=== PATIENT | male | born 1950 | race African-American/Black ===

== ENCOUNTER 2020-06-30 08:57 | Inpatient (IN) | payer MEDICARE, OTHER ==
[~2020-06-30] VITALS: Ht 177.8 cm; Wt 86.2 kg
[~2020-06-30 08:57] MED LIST: AMLO-213 PO; ATOR20TA PO; BENA10TA74 PO; ESOM40CA52 PO; FURO20TA4 PO; INSU100I14 SQ; INSU300I SQ; METO-357 PO
--- NOTE | 2020-06-30 09:30 | NUR ---
attempted to insert iv 3x but pt is a hard stick. per md okay to insert midline. midline ordered. stockroom supervisor informed
--- NOTE | 2020-06-30 09:48 | NUR ---
SPOKE TO ERIN AT [facility] , PER ERIN PATIENT IS A/OX1 AND TOTAL CARE, BUT DOES NOT USE OXYGEN AT HOME. DR. BARTHOLOMEW MADE AWARE.
[2020-06-30] MEDS ORDERED: INSU100V7 SQ (10:20)
[2020-06-30] MEDS ORDERED: GABA-532 PO ×2 (10:20)
[2020-06-30] MEDS ORDERED: DEXT15LI44 PO (10:20)
[2020-06-30] MEDS ORDERED: FAMO20TA8 PO (10:20)
[2020-06-30] MEDS ORDERED: CARV25TA2 PO (10:20)
[2020-06-30] MEDS ORDERED: DOCU-141 PO (10:20)
[2020-06-30] MEDS ORDERED: LISI40TA4 PO (10:20)
[2020-06-30] MEDS ORDERED: HEPA50007 SQ (10:20)
[2020-06-30] MEDS ORDERED: LORA-259 PO (10:20)
[2020-06-30] MEDS ORDERED: GLUC1KIT IM (10:20)
[2020-06-30] MEDS ORDERED: HYDR-3972 PO (10:20)
[2020-06-30] MEDS ORDERED: HYDR-4075 PO (10:20)
[2020-06-30] MEDS ORDERED: ASPI-1169 PO (10:20)
--- NOTE | 2020-06-30 11:00 | NUR ---
health educator by bedside for the second time pt is a hard stick.
--- NOTE | 2020-06-30 11:39 | NUR ---
per railroad car cleaning supervisor midline nurse will be here at 2pm. made aware.
--- NOTE | 2020-06-30 12:20 | NUR ---
covid swab collected sent to lab
--- NOTE | 2020-06-30 13:06 | NUR ---
museum librarian and primary rn attempted to do blood draw again, was able to finally get blood, sent to lab for processing. made aware.
[2020-06-30 13:18] LABS: CALCIUM, SERUM 10.8 mg/dL (8.5-10.1); CARBON DIOXIDE 27 mmol/L (21-32); CHLORIDE 100 mmol/L (98-107); GLUCOSE 165 mg/dL (74-106); POTASSIUM 5.8 mmol/L (3.5-5.1); SODIUM SERUM 140 mmol/L (136-145); UREA NITROGEN, BLOOD 73 mg/dL (7-18)
[2020-06-30 13:20] LABS: CREATININE 14.5 mg/dL (0.6-1.3)
[2020-06-30 13:23] LABS: ALANINE AMINOTRANSFERASE 8 U/L (12-78); ALBUMIN 3.1 g/dL (3.4-5.0); ALCOHOL, BLOOD < 3 mg/dL (0-0); ALKALINE PHOSPHATASE 73 U/L (46-116); ASPARTATE AMINOTRANSFERASE 17 U/L (15-37); BILIRUBIN,DIRECT 0.1 mg/dL (0.0-0.2); BILIRUBIN,TOTAL 0.3 mg/dL (0.2-1.0); TOTAL PROTEIN, SERUM 8.7 g/dL (6.4-8.2)
[2020-06-30 13:25] LABS: ACETAMINOPHEN 0 ug/ml (10-30)
--- NOTE | 2020-06-30 13:36 | NUR ---
LUIS E HONG [phone]
[2020-06-30 13:52] LABS: SERUM AMMONIA 25 umol/L (11-32)
--- NOTE | 2020-06-30 14:30 | NUR ---
midline inserted on L upper arm. by midline urse
[2020-06-30 14:54] LABS: BASOPHILS % (AUTO) 0.5 % (0.0-2.0); EOSINOPHILS % (AUTO) 3.4 % (0.0-6.0); HEMATOCRIT 21 % (39-51); HEMOGLOBIN 7.1 g/dL (13.5-17.5); LYMPHOCYTES # (AUTO) 0.9 /CMM (0.8-4.8); LYMPHOCYTES % (AUTO) 11.3 % (20.0-44.0); MEAN CORPUSCULAR HGB CONC 33 g/dl (31.0-36.0); MEAN CORPUSCULAR VOLUME 79 fL (80-96); MONOCYTES # (AUTO) 1.1 /CMM (0.1-1.30); MONOCYTES % (AUTO) 13.7 % (2.0-12.0); NEUTROPHILS # (AUTO) 5.9 /CMM (1.8-8.9); NEUTROPHILS % (AUTO) 71.1 % (43.0-81.0); PLATELET COUNT (AUTO) 234 /CMM (150-450); RED BLOOD CELL COUNT(AUTO) 2.69 MIL/uL (4.5-6.0); WHITE BLOOD COUNT (AUTO) 8.3 K/uL (4.3-11.0)
[2020-06-30] MEDS ORDERED: ALBUTEROL FS 2.5 MG/3 ML VIAL.NEB NEB ONE (15:30)
[2020-06-30] MEDS ORDERED: CEFEPIME 1 GM in IV D5W 50 ML IV ONE (15:30)
[2020-06-30] MEDS ORDERED: INSULIN REGULAR, HUMAN 100 UNIT/ML 10 ML VIAL IV ONE (15:30)
[2020-06-30] MEDS ORDERED: SODIUM BICARBONATE SYR 50 MEQ/50 ML DISP.SYRIN IV ONE (15:30)
[2020-06-30] MEDS ORDERED: CALCIUM CHLORIDE 1,000 MG/10 ML DISP.SYRIN IV ONE (15:30)
[2020-06-30] MEDS ORDERED: DEXTROSE 50%-WATER 50 ML DISP.SYRIN IV ONE (15:30)
[2020-06-30] MEDS ORDERED: VANCOMYCIN 1 GM in IV D5W 250 ML IV ONE (15:30)
[2020-06-30] MEDS ORDERED: DEXTROSE 50%-WATER 50 ML DISP.SYRIN ONE ×2 (15:49→15:50)
[2020-06-30] MEDS ORDERED: CALCIUM CHLORIDE 1,000 MG/10 ML DISP.SYRIN ONE (15:49)
[2020-06-30] MEDS ORDERED: INSULIN REGULAR, HUMAN 100 UNIT/ML 10 ML VIAL ONE (15:49)
[2020-06-30] MEDS ORDERED: SODIUM BICARBONATE SYR 50 MEQ/50 ML DISP.SYRIN ONE (15:50)
[2020-06-30] MEDS ORDERED: hydrALAZINE HCL 10 MG TABLET PO PRN (16:00)
[2020-06-30] MEDS ORDERED: [UNRECOGNIZED DRUG - OTHER] PO PRN (16:00)
[2020-06-30] MEDS ORDERED: ZOLPIDEM TARTRATE 5 MG TABLET PO PRN (16:00)
[2020-06-30] MEDS ORDERED: HYDROCODONE/APAP 5/325MG TABLET PO PRN ×2 (16:00)
[2020-06-30] MEDS ORDERED: MAG HYDROX/AL HYDROX/SIMETH 30 ML UDC PO PRN (16:00)
[2020-06-30] MEDS ORDERED: LORAZEPAM 1 MG TABLET PO PRN (16:00)
[2020-06-30] MEDS ORDERED: MAGNESIUM HYDROXIDE 30 ML UDC PO PRN (16:00)
[2020-06-30] MEDS ORDERED: ONDANSETRON HCL/PF 4 MG/2 ML VIAL IVP PRN (16:00)
[2020-06-30] MEDS ORDERED: DEXTROSE 15 GM PO PRN (16:00)
--- NOTE | 2020-06-30 16:21 | NUR ---
rt called for breathing tx
[2020-06-30] MEDS ORDERED: ALBUTEROL FS 2.5 MG/3 ML VIAL.NEB ONE (16:27)
[2020-06-30] MEDS: GABAPENTIN 100 MG CAPSULE PO SCH ×2 (17:00→21:30)
[2020-06-30] MEDS ORDERED: GLUCAGON,HUMAN RECOMBINANT 1 MG/VIAL VIAL IM PRN (17:30)
[2020-06-30 18:57] LABS: C-REACTIVE PROTEIN 27.3 mg/dL (0.0-0.9)
--- NOTE | 2020-06-30 19:05 | NUR ---
REC'D REPORT FROM MILAD DHILLON. PT BIBRA FROM DIALYSIS FOR ALTERED MENTAL STATUS. PT WAS NOT DIALYZED TODAY. PT APPEARS CONFUSED AND NOT SPEAKING CLEARLY. SKIN IS WARM AND INTACT. ON 4L NC O2.PT BREATHING UNLABORED AND EVENLY. PT HAS DIALYSIS ACCESS ON RT UPPER EXTREMITY. PICC LINE ON LEFT UPPER EXTREMITY. PT HOOKED TO MONITOR AND POX. PT MADE COMFORTABLE WITH BLANKET AND CALL LIGHT WITHIN REACH. WILL CONTINUE TO MONITOR.
--- NOTE | 2020-06-30 19:20 | NUR ---
report given to [facility] for leni
--- NOTE | 2020-06-30 20:58 | NUR ---
RUPA KIMBROUGH [phone]
[2020-06-30] MEDS ORDERED: HEPARIN SODIUM, PORCINE 5000 UNITS/1 ML VIAL ONE (21:11)
[2020-06-30] MEDS ORDERED: CARVEDILOL 12.5 MG TABLET ONE (21:11)
[2020-06-30] MEDS ORDERED: GABAPENTIN 100 MG CAPSULE ONE (21:12)
[2020-06-30] MEDS ORDERED: ATORVASTATIN 40 MG TABLET ONE (21:12)
[2020-06-30] MEDS: HEPARIN SODIUM, PORCINE 5000 UNITS/1 ML VIAL SQ SCH (21:30)
[2020-06-30] MEDS: CARVEDILOL 12.5 MG TABLET PO SCH (21:30)
[2020-06-30] MEDS: ATORVASTATIN 40 MG TABLET PO SCH (21:30)
[2020-06-30] MEDS: INSULIN GLARGINE, 100 UNIT/ML CARTRIDGE SQ SCH (21:35)
[2020-06-30 23:26] LABS: THYROID STIMULATING HORMONE 0.492 uIU/mL (0.358-3.74)
[2020-07-01] MEDS ORDERED: SODIUM POLYSTYRENE SULFONATE 15 G/60 ML BOTTLE PO ONE (01:00)
--- NOTE | 2020-07-01 03:15 | NUR ---
lab at bedside for redraw
[2020-07-01 03:41] LABS: BASOPHILS % (AUTO) 0.4 % (0.0-2.0); EOSINOPHILS % (AUTO) 2.5 % (0.0-6.0); HEMATOCRIT 23 % (39-51); HEMOGLOBIN 7.5 g/dL (13.5-17.5); LYMPHOCYTES % (AUTO) 10.6 % (20.0-44.0); MEAN CORPUSCULAR HGB CONC 32 g/dl (31.0-36.0); MEAN CORPUSCULAR VOLUME 80 fL (80-96); MONOCYTES # (AUTO) 1.2 /CMM (0.1-1.30); MONOCYTES % (AUTO) 12.8 % (2.0-12.0); NEUTROPHILS # (AUTO) 7.1 /CMM (1.8-8.9); NEUTROPHILS % (AUTO) 73.7 % (43.0-81.0); PLATELET COUNT (AUTO) 305 /CMM (150-450); RED BLOOD CELL COUNT(AUTO) 2.91 MIL/uL (4.5-6.0); WHITE BLOOD COUNT (AUTO) 9.6 K/uL (4.3-11.0)
[2020-07-01 03:53] LABS: CALCIUM, SERUM 10.7 mg/dL (8.5-10.1); MAGNESIUM 2.6 mg/dL (1.8-2.4); PHOSPHORUS 7.6 mg/dL (2.5-4.9); POTASSIUM 6.1 mmol/L (3.5-5.1)
[2020-07-01 03:55] LABS: CREATININE 15.9 mg/dL (0.6-1.3)
[2020-07-01] MEDS ORDERED: HEPARIN SODIUM, PORCINE 5000 UNITS/1 ML VIAL ONE ×2 (05:27→13:35)
[2020-07-01] MEDS ORDERED: SODIUM POLYSTYRENE SULFONATE 15 G/60 ML BOTTLE ONE (05:28)
[2020-07-01] MEDS: HEPARIN SODIUM, PORCINE 5000 UNITS/1 ML VIAL SQ SCH ×3 (05:45→22:51)
--- NOTE | 2020-07-01 07:25 | NUR ---
GAVE REPORT TO MILAD CARVALHO FOR TAWNY
[2020-07-01] MEDS ORDERED: FAMOTIDINE (20 MG) 20 MG TABLET ONE (09:41)
[2020-07-01] MEDS: FAMOTIDINE (20 MG) 20 MG TABLET PO SCH (09:42)
[2020-07-01] MEDS ORDERED: CARVEDILOL 12.5 MG TABLET ONE (09:46)
[2020-07-01] MEDS ORDERED: DOCUSATE SODIUM LIQ 100 MG/10 ML UDC ONE (09:46)
[2020-07-01] MEDS ORDERED: AMLODIPINE BESYLATE 5 MG TABLET ONE (09:46)
[2020-07-01] MEDS ORDERED: GABAPENTIN 100 MG CAPSULE ONE ×2 (09:47→13:35)
[2020-07-01] MEDS ORDERED: ASPIRIN 81 MG TAB.CHEW ONE (09:47)
[2020-07-01] MEDS: ASPIRIN 81 MG TAB.CHEW PO SCH (10:05)
[2020-07-01] MEDS: DOCUSATE SODIUM 100 MG CAPSULE PO SCH ×2 (10:05→17:00)
[2020-07-01] MEDS: GABAPENTIN 100 MG CAPSULE PO SCH ×4 (10:06→22:00)
[2020-07-01] MEDS: LISINOPRIL (20MG) 20 MG TABLET PO SCH (10:06)
[2020-07-01] MEDS: AMLODIPINE BESYLATE 5 MG TABLET PO SCH ×2 (10:06→17:00)
[2020-07-01] MEDS: CARVEDILOL 12.5 MG TABLET PO SCH ×2 (10:06→21:00)
--- NOTE | 2020-07-01 10:49 | NUR ---
BED 201
--- NOTE | 2020-07-01 12:56 | NUR ---
REPORT GIVEN TO SIA STINSON. AWAITING TRANSFER TO FLOOR.
--- NOTE | 2020-07-01 13:30 | NUR ---
ms rn received on bed,awake,oriented x1, lethargic/confuse not in any form of distress,respirations even and unlabored,no sob noted lungs are diminish,abdomen soft,positive bowel sounds,denies pain at this time, will monitor patient's condition.
--- NOTE | 2020-07-01 15:47 | NUR ---
ms rn patient for hd later today.
[2020-07-01 16:00] VITALS: BP 151/64
--- NOTE | 2020-07-01 17:00 | NUR ---
ms rn on bed,no distress noted, medications not given, patient is so lethargic.
--- NOTE | 2020-07-01 19:00 | NUR ---
ms rn about to begin dialysis at this time hd rn at bedside.
[2020-07-01 20:00] VITALS: BP 131/76
[2020-07-01] MEDS: ATORVASTATIN 40 MG TABLET PO SCH (22:00)
[2020-07-01] MEDS: INSULIN GLARGINE, 100 UNIT/ML CARTRIDGE SQ SCH (22:00)
--- NOTE | 2020-07-01 22:43 | NUR ---
BLOOD SUGAR=49, CERTIFIED ADAPTED PHYSICAL EDUCATOR WILBER AWARE.
[2020-07-01] MEDS ORDERED: DEXTROSE 50%-WATER 50 ML DISP.SYRIN IVP ONE (23:00)
--- NOTE | 2020-07-01 23:15 | NUR ---
BLOOD SUGAR RECHECKED= 99.
--- NOTE | 2020-07-01 23:46 | NUR ---
INFORMED AUTOMATED WEAVER WILBER RE: PT UNABLE TO SWALLOW, PT IS SLIGHTLY LETHARGIC, OPENS HIS EYES FOR A FEW MINUTES THEN HE FALL ASLEEP. UNABLE TO GIVE ALL PO MEDS SCHEDULED FOR TONIGHT. RELAYED RESULT OF REPEATED BLOOD SUGAR AFTER GIVING D50 DEXTROSE.
--- NOTE | 2020-07-01 23:51 | NUR ---
HOB KEPT ELEVATED AT ALL TIMES. BED IN LOWEST AND LOCKED POSITION. SIDERAILS UP.
[2020-07-02] VITALS (8 sets, daily range): BP systolic 141–157; BP diastolic 63–75
[2020-07-02] MEDS: IV D5/ 0.9% NACL 1,000 ML IV PRN ×2 (03:44→22:52)
[2020-07-02] MEDS: Z GUARD REMEDY 2 OZ OINT TP PRN ×2 (06:14→23:45)
[2020-07-02] MEDS: HEPARIN SODIUM, PORCINE 5000 UNITS/1 ML VIAL SQ SCH ×3 (06:55→22:43)
[2020-07-02 07:28] LABS: BASOPHILS % (AUTO) 0.4 % (0.0-2.0); EOSINOPHILS % (AUTO) 0.2 % (0.0-6.0); HEMATOCRIT 23 % (39-51); HEMOGLOBIN 7.4 g/dL (13.5-17.5); LYMPHOCYTES % (AUTO) 9.1 % (20.0-44.0); MEAN CORPUSCULAR HGB CONC 32 g/dl (31.0-36.0); MEAN CORPUSCULAR VOLUME 80 fL (80-96); MONOCYTES # (AUTO) 1.1 /CMM (0.1-1.30); MONOCYTES % (AUTO) 10.1 % (2.0-12.0); NEUTROPHILS # (AUTO) 8.6 /CMM (1.8-8.9); NEUTROPHILS % (AUTO) 80.2 % (43.0-81.0); PLATELET COUNT (AUTO) 322 /CMM (150-450); WHITE BLOOD COUNT (AUTO) 10.8 K/uL (4.3-11.0)
[2020-07-02] MEDS: FAMOTIDINE (20 MG) 20 MG TABLET PO SCH (07:30)
[2020-07-02 07:35] LABS: CALCIUM, SERUM 9.9 mg/dL (8.5-10.1); POTASSIUM 4.7 mmol/L (3.5-5.1)
[2020-07-02 07:43] LABS: CREATININE 12.4 mg/dL (0.6-1.3)
[2020-07-02] MEDS: AMLODIPINE BESYLATE 5 MG TABLET PO SCH ×2 (09:00→17:18)
[2020-07-02] MEDS: CARVEDILOL 12.5 MG TABLET PO SCH ×2 (09:00→22:45)
[2020-07-02] MEDS: LISINOPRIL (20MG) 20 MG TABLET PO SCH (09:00)
[2020-07-02] MEDS: GABAPENTIN 100 MG CAPSULE PO SCH ×4 (09:00→22:44)
[2020-07-02] MEDS: ASPIRIN 81 MG TAB.CHEW PO SCH (09:00)
[2020-07-02] MEDS: DOCUSATE SODIUM 100 MG CAPSULE PO SCH ×2 (09:00→17:17)
--- NOTE | 2020-07-02 11:37 | NUR ---
RN NOTE ST eval complete, patient is NPO d/t aspiration risk, unable to swallow. Patient is confused, unable to focus, patient is unable to say complete words. Notified Dr. Marie and vivienne to insert NGT and start feedings per dietary recommendation.
--- NOTE | 2020-07-02 14:31 | NUR ---
RN NOTE Proper NGT placement confirmed with CXR. Ok to start meds per MD and await for dietary consult for feedings. Bilateral soft wrist restraints in place d/t patient pulling out NGT and IV lines. Will continue with plan of care.
[2020-07-02] MEDS: ACETAMINOPHEN 325 MG TABLET PO PRN ×2 (15:03→23:34)
[2020-07-02] MEDS ORDERED: DEXTROSE 50%-WATER 50 ML DISP.SYRIN IV PRN (17:00)
[2020-07-02] MEDS: BLOOD SUGAR DIAGNOSTIC 1 EACH STRIP IN SCH ×2 (18:04→23:48)
--- NOTE | 2020-07-02 19:29 | NUR ---
RN CLOSING NOTE Patient is resting in bed, A/O x1, confused, agitated at times, bilateral soft wrist restraints in place d/t patient pulling out lines and tubes. Circulation checked, skin checked, 2-finger space inbetween. NGT in the left nare 55cm in place, ok for meds, FNS consult to follow for feeding. S/P HD today 1L out. All patient needs met, all due medications given, patient kept clean and dry throughout shift. Fall safety and aspiration precautions enforced. Will endorse to restaurant shift leader for TAWNY.
[2020-07-02] MEDS: INSULIN GLARGINE, 100 UNIT/ML CARTRIDGE SQ SCH (22:00)
[2020-07-02] MEDS: ATORVASTATIN 40 MG TABLET PO SCH (22:44)
[2020-07-03] VITALS: BP 133/56
--- NOTE | 2020-07-03 01:41 | NUR ---
INFORMED ACCOUNTING BOOKKEEPER WILBER RE: ORAL POMN=932.1,TYLENOL 650 MG THRU NGT GIVEN.
--- NOTE | 2020-07-03 01:44 | NUR ---
ice packs placed to forehead and axilla.
[2020-07-03 04:00] VITALS: BP 139/69
[2020-07-03] MEDS: HEPARIN SODIUM, PORCINE 5000 UNITS/1 ML VIAL SQ SCH ×3 (05:38→21:08)
[2020-07-03] MEDS: BLOOD SUGAR DIAGNOSTIC 1 EACH STRIP IN SCH ×3 (06:00→17:46)
--- NOTE | 2020-07-03 06:09 | NUR ---
BLOOD SUGAR-156, NO SLIDING SCALE ORDER. URINE SAMPLE COLLECTED VIA STRAIGHT CATHETERIZATION FOR URINE CULTURE AND GIVEN TO THE VETERINARY PRACTITIONER.
--- NOTE | 2020-07-03 06:34 | NUR ---
MAPPING TECHNICIAN CLOSING NOTES: PT IN BED, AWAKE, A/O X1,CONFUSED. HOB ELEVATED. NO S/S OF DISTRESS NOTED. BED IN LOWEST AND LOCKED POSITION. NO COMPLAIN OF PAIN. BILATERAL HEELS OFFLOADED. TURNED AND REPOSITIONED. WITH LEFT NARE NGT INTACT,CLAMPED. ORAL TEMP- 98.9. ON ROOM AIR WITH GOOD O2 SAT.
--- NOTE | 2020-07-03 07:23 | NUR ---
RN NOTES RECEIVED PATIENT IN BED. HOB ELEVATED. NO SOB. REMAIN ON TELEMONITORING SR: 81. NGT INTACT AND PATENT, NO RESIDUAL NOTED. BRANDON ENSURE WELL VIA NGT. LEFT UPPER ARM MIDLINE INTACT BRANDON D5W AT 50ML/HR. RIGHT ARM AV SHUNT INTACT. BED IN LOWEST POSITION, LOCKED. IN NO APPARENT DISTRESS.
[2020-07-03 08:00] VITALS: BP 144/60
[2020-07-03] MEDS: FAMOTIDINE (20 MG) 20 MG TABLET PO SCH (08:30)
[2020-07-03] MEDS: LISINOPRIL (20MG) 20 MG TABLET PO SCH (09:45)
[2020-07-03] MEDS: GABAPENTIN 100 MG CAPSULE PO SCH ×4 (09:45→21:09)
[2020-07-03] MEDS: CARVEDILOL 12.5 MG TABLET PO SCH ×2 (09:45→21:09)
[2020-07-03] MEDS: ASPIRIN 81 MG TAB.CHEW PO SCH (09:45)
[2020-07-03] MEDS: DOCUSATE SODIUM 100 MG CAPSULE PO SCH ×2 (09:45→17:38)
[2020-07-03] MEDS: AMLODIPINE BESYLATE 5 MG TABLET PO SCH ×2 (09:47→17:38)
[2020-07-03 12:10] VITALS: BP 134/73
[2020-07-03 16:00] VITALS: BP 132/59
[2020-07-03] MEDS ORDERED: ENSURE CLEAR 237 ML LIQUID (MIX BERRY) GT SCH (17:00)
[2020-07-03 18:18] LABS: CALCIUM, SERUM 9.9 mg/dL (8.5-10.1); POTASSIUM 4.6 mmol/L (3.5-5.1)
[2020-07-03 18:21] LABS: CREATININE 10.9 mg/dL (0.6-1.3)
--- NOTE | 2020-07-03 18:50 | NUR ---
RN NOTES PATIENT RESTING COMFORTABLY IN BED. HOB ELEVATED. NO SOB. REMAIN ON TELEMONITORING SR: 81. NGT INTACT AND PATEN, NO RESIDUAL NOTED. BRANDON ENSURE WELL NGT. LEFT UPPER ARM MIDLINE INTACT. RIGHT ARM AV SHUNT INTACT. BED IN LOWEST POSITION, LOCKED. IN NO APPARENT DISTRESS.
[2020-07-03] MEDS: IV D5/ 0.9% NACL 1,000 ML IV PRN (19:08)
[2020-07-03 19:12] LABS: BASOPHILS % (AUTO) 0.4 % (0.0-2.0); HEMATOCRIT 23 % (39-51); HEMOGLOBIN 7.2 g/dL (13.5-17.5); LYMPHOCYTES # (AUTO) 0.9 /CMM (0.8-4.8); LYMPHOCYTES % (AUTO) 10.7 % (20.0-44.0); MEAN CORPUSCULAR HGB CONC 32 g/dl (31.0-36.0); MEAN CORPUSCULAR VOLUME 81 fL (80-96); MONOCYTES # (AUTO) 0.5 /CMM (0.1-1.30); MONOCYTES % (AUTO) 5.6 % (2.0-12.0); NEUTROPHILS # (AUTO) 7.3 /CMM (1.8-8.9); NEUTROPHILS % (AUTO) 83.3 % (43.0-81.0); PLATELET COUNT (AUTO) 283 /CMM (150-450); RED BLOOD CELL COUNT(AUTO) 2.84 MIL/uL (4.5-6.0); WHITE BLOOD COUNT (AUTO) 8.7 K/uL (4.3-11.0)
--- NOTE | 2020-07-03 19:30 | NUR ---
TELE/RN OPENING NOTES RECEIVED PATIENT IN BED RESTING. PATIENT IS ALERT AND ORIENTED X 1. PATIENT BREATHING IS EVEN AND UNLABORED, NO SIGNS OF RESPIRATORY DISTRESS NOTED. PATIENT IS ON SOFT BILATERAL RESTRAINTS, HAND CIRCULATION IS GOOD. AV SHUNT ON RIGHT ARM, LEFT MIDLINE RUNNING D5 NS AT 50CC/HR. SAFETY MEASURES ARE IN PLACE, BED IS LOCKED AND PLACED IN THE LOW POSITION , SIDE RAILS UP X 3, CALL LIGHT WITHIN REACH. WILL CONTINUE TO MONITOR THROUGH OUT SHIFT.
[2020-07-03 20:00] VITALS: BP 146/80
[2020-07-03] MEDS: MUPIROCIN OINT 2% 22 GM TUBE NS SCH (21:00)
[2020-07-03] MEDS: ATORVASTATIN 40 MG TABLET PO SCH (21:09)
[2020-07-03] MEDS: INSULIN GLARGINE, 100 UNIT/ML CARTRIDGE SQ SCH (21:23)
[2020-07-04] VITALS: BP 121/65
[2020-07-04] MEDS: BLOOD SUGAR DIAGNOSTIC 1 EACH STRIP IN SCH ×5 (00:08→23:31)
[2020-07-04 04:00] VITALS: BP 113/56
[2020-07-04] MEDS: HEPARIN SODIUM, PORCINE 5000 UNITS/1 ML VIAL SQ SCH ×3 (05:15→22:32)
[2020-07-04 06:57] LABS: BASOPHILS % (AUTO) 0.5 % (0.0-2.0); EOSINOPHILS % (AUTO) 0.1 % (0.0-6.0); HEMATOCRIT 22 % (39-51); LYMPHOCYTES # (AUTO) 1.1 /CMM (0.8-4.8); LYMPHOCYTES % (AUTO) 13.4 % (20.0-44.0); MEAN CORPUSCULAR HGB CONC 32 g/dl (31.0-36.0); MEAN CORPUSCULAR VOLUME 81 fL (80-96); MONOCYTES # (AUTO) 0.4 /CMM (0.1-1.30); MONOCYTES % (AUTO) 4.9 % (2.0-12.0); NEUTROPHILS # (AUTO) 6.9 /CMM (1.8-8.9); NEUTROPHILS % (AUTO) 81.1 % (43.0-81.0); PLATELET COUNT (AUTO) 263 /CMM (150-450); RED BLOOD CELL COUNT(AUTO) 2.75 MIL/uL (4.5-6.0); WHITE BLOOD COUNT (AUTO) 8.5 K/uL (4.3-11.0)
--- NOTE | 2020-07-04 07:00 | NUR ---
TELE/RN OPENING NOTES RECEIVED PATIENT IN BED RESTING. PATIENT IS ALERT AND ORIENTED X 1. PATIENT BREATHING IS EVEN AND UNLABORED, NO SIGNS OF RESPIRATORY DISTRESS NOTED. PATIENT IS ON SOFT BILATERAL RESTRAINTS, HAND CIRCULATION IS GOOD. AV SHUNT ON RIGHT ARM, LEFT MIDLINE RUNNING D5 NS AT 50CC/HR. TELE READING SR. ALL NEEDS HAVE BEEN MET DURING SHIFT. SAFETY MEASURES ARE IN PLACE, BED IS LOCKED AND PLACED IN THE LOW POSITION , SIDE RAILS UP X 3, CALL LIGHT WITHIN REACH. WILL ENDORSE TO DAY SHIFT NURSE.
[2020-07-04] MEDS: FAMOTIDINE (20 MG) 20 MG TABLET PO SCH (07:30)
[2020-07-04 07:33] LABS: CALCIUM, SERUM 9.7 mg/dL (8.5-10.1); POTASSIUM 4.6 mmol/L (3.5-5.1)
[2020-07-04 07:36] LABS: CREATININE 12.3 mg/dL (0.6-1.3)
[2020-07-04 08:00] VITALS: BP 123/52
[2020-07-04] MEDS: LISINOPRIL (20MG) 20 MG TABLET PO SCH (09:00)
[2020-07-04] MEDS: AMLODIPINE BESYLATE 5 MG TABLET PO SCH ×2 (09:00→17:43)
[2020-07-04] MEDS: ASPIRIN 81 MG TAB.CHEW PO SCH (09:00)
[2020-07-04] MEDS: CARVEDILOL 12.5 MG TABLET PO SCH ×2 (09:00→22:33)
[2020-07-04] MEDS: GABAPENTIN 100 MG CAPSULE PO SCH ×4 (09:00→22:33)
[2020-07-04] MEDS: DOCUSATE SODIUM 100 MG CAPSULE PO SCH ×2 (09:00→17:43)
--- NOTE | 2020-07-04 09:43 | NUR ---
RN NOTES HELD AM MEDS, ANTICIPATING HD TODAY.
[2020-07-04] MEDS: MUPIROCIN OINT 2% 22 GM TUBE NS SCH ×2 (10:00→22:34)
[2020-07-04] MEDS ORDERED: ALBUMIN 25% 25 GM in PREMIX 1 EA IV PRN (11:30)
[2020-07-04 12:00] VITALS: BP 111/53
--- NOTE | 2020-07-04 13:00 | NUR ---
RN NOTES OBSERVED PATIENT WITH ON AND OFF ALERTNESS. OBSERVED WHEN ALERT AND AWAKE, PATIENT VERBALLY RESPONSIVE AND ANSWERS AND FOLLOWS COMMANDS.
--- NOTE | 2020-07-04 13:00 | NUR ---
RN NOTES HELD HEPARIN. HGB < 7.0 PATIENT SCHEDULED FOR BLOOD TRANSFUSION.
[2020-07-04 16:00] VITALS: BP 115/61
[2020-07-04] MEDS: NEPRO 1,000 ML BOTTLE GT PRN (17:18)
[2020-07-04] MEDS: PROSOURCE / PROSTAT (PYXIS) 30 ML UDC GT SCH (17:44)
[2020-07-04] MEDS: ACETAMINOPHEN 325 MG TABLET PO PRN (17:44)
[2020-07-04] MEDS ORDERED: DEXTROSE 50%-WATER 50 ML DISP.SYRIN IV PRN (18:00)
--- NOTE | 2020-07-04 19:54 | NUR ---
RN NOTES PATIENT RESTING COMFORTABLY IN BED. NO SOB OBSERVED. DENIES ANY C/O PAIN NOR DISCOMFORT AT THIS TIME. HOB ELEVATED. NGT INTACT AND PATENT BRANDON NEPRO AT 25ML/HR. NO RESIDUAL OBSERVED. BILATERAL WRIST RESTRAINTS INTACT AND PATENT. BED IN LOWEST POSITION ,LOCKED. BED ALARM ON. IN NO APPARENT DISTRESS.
[2020-07-04 20:00] VITALS: BP 120/47
--- NOTE | 2020-07-04 20:00 | NUR ---
RN NOTES AWAITING FOR BLOOD FOR BLOOD TRANSFUSION. ENDORSED TO ONCOMING SHIFT.
[2020-07-04] MEDS ORDERED: BLOOD SUGAR DIAGNOSTIC 1 EACH STRIP IN SCH (22:00)
--- NOTE | 2020-07-04 22:00 | NUR ---
no residual noted in ngt tube feeding increased to 40 ml per hour. goal is 45 ml/hr.
[2020-07-04] MEDS: ATORVASTATIN 40 MG TABLET PO SCH (22:33)
[2020-07-04] MEDS: INSULIN GLARGINE, 100 UNIT/ML CARTRIDGE SQ SCH (23:07)
[2020-07-04] MEDS: INSULIN REGULAR, HUMAN 100 UNIT/ML 3 ML VIAL SQ PRN (23:08)
[2020-07-04] MEDS: IV D5/ 0.9% NACL 1,000 ML IV PRN (23:14)
[2020-07-05] VITALS (11 sets, daily range): BP systolic 90–134; BP diastolic 51–155
[2020-07-05 06:10] LABS: BASOPHILS % (AUTO) 0.6 % (0.0-2.0); EOSINOPHILS % (AUTO) 0.1 % (0.0-6.0); HEMATOCRIT 25 % (39-51); HEMOGLOBIN 8.1 g/dL (13.5-17.5); LYMPHOCYTES # (AUTO) 0.5 /CMM (0.8-4.8); LYMPHOCYTES % (AUTO) 6.8 % (20.0-44.0); MEAN CORPUSCULAR HGB CONC 32 g/dl (31.0-36.0); MEAN CORPUSCULAR VOLUME 82 fL (80-96); MONOCYTES # (AUTO) 0.2 /CMM (0.1-1.30); MONOCYTES % (AUTO) 2.6 % (2.0-12.0); NEUTROPHILS # (AUTO) 7.1 /CMM (1.8-8.9); NEUTROPHILS % (AUTO) 89.9 % (43.0-81.0); PLATELET COUNT (AUTO) 258 /CMM (150-450); RED BLOOD CELL COUNT(AUTO) 3.04 MIL/uL (4.5-6.0); WHITE BLOOD COUNT (AUTO) 7.9 K/uL (4.3-11.0)
[2020-07-05 06:23] LABS: CALCIUM, SERUM 9.2 mg/dL (8.5-10.1); POTASSIUM 3.7 mmol/L (3.5-5.1)
[2020-07-05] MEDS: HEPARIN SODIUM, PORCINE 5000 UNITS/1 ML VIAL SQ SCH ×3 (06:25→21:50)
--- NOTE | 2020-07-05 06:25 | NUR ---
heparin held for hgb of 7.0 yesterday. one unit of prbc given last night. no s/s of bleeding will await new labs. of am.
[2020-07-05] MEDS: BLOOD SUGAR DIAGNOSTIC 1 EACH STRIP IN SCH ×4 (06:26→23:23)
[2020-07-05] MEDS: INSULIN REGULAR, HUMAN 100 UNIT/ML 3 ML VIAL SQ PRN ×4 (06:29→23:35)
[2020-07-05 06:50] LABS: CREATININE 10.2 mg/dL (0.6-1.3)
--- NOTE | 2020-07-05 07:36 | NUR ---
MACHINE STEAK TENDERIZER OPENING NOTES RECEIVED PATIENT IN BED, RESTING, A/O X1, CONFUSED. PATIENT ON ROOM AIR; BREATHING EVEN AND UNLABORED; NO SOB NOTED. NO S/S OF PAIN SUCH FACIAL GRIMACING, GUARDING OR MOANING NOTED. HOB ELEVATED. NG-TUBE INTACT AND PATENT TOLERATING NEPRO AT 25ML/HR. BILATERAL WRIST RESTRAINTS INTACT AND PATENT. ANITHA MIDLINE PRESENT AND INTACT. SAFETY PRECAUTIONS IN PLACE; BED IN LOW POSITION AND LOCKED, RAILS UP X2, CALL LIGHT WITHIN REACH. WILL CONTINUE TO MONITOR PATIENT.
[2020-07-05] MEDS: DOCUSATE SODIUM 100 MG CAPSULE PO SCH ×2 (08:38→16:48)
[2020-07-05] MEDS: PROSOURCE / PROSTAT (PYXIS) 30 ML UDC GT SCH ×2 (08:38→16:12)
[2020-07-05] MEDS: FAMOTIDINE (20 MG) 20 MG TABLET PO SCH (08:38)
[2020-07-05] MEDS: GABAPENTIN 100 MG CAPSULE PO SCH ×4 (08:38→21:48)
[2020-07-05] MEDS: MUPIROCIN OINT 2% 22 GM TUBE NS SCH ×2 (08:38→21:47)
[2020-07-05] MEDS: ASPIRIN 81 MG TAB.CHEW PO SCH (08:38)
[2020-07-05] MEDS: LISINOPRIL (20MG) 20 MG TABLET PO SCH (08:39)
[2020-07-05] MEDS: CARVEDILOL 12.5 MG TABLET PO SCH ×2 (08:40→21:48)
[2020-07-05] MEDS: AMLODIPINE BESYLATE 5 MG TABLET PO SCH ×2 (08:40→16:46)
--- NOTE | 2020-07-05 09:35 | NUR ---
SHOE REPAIR COBBLER NOTES RECEIVED RESULTS FOR LAB. PATIENT IS COVID-19 POSITIVE.
--- NOTE | 2020-07-05 11:10 | NUR ---
WOUND CARE CONSULT: REVIEWED CHART,NURSING DOCUMENTATION AND PHOTOS WHICH INDICATES DARK DISCOLORATION TO DISTAL TOES,PRESENT ON ADMISSION. RN TO DISCUSS WITH MD. RECOMMENDATIONS MADE FOR SKIN PROTECTION. DISCUSSED WITH NURSING STAFF. MD IN AGREEMENT WITH PLAN OF CARE.
--- NOTE | 2020-07-05 19:21 | NUR ---
VAMP CREASER CLOSING NOTES PATIENT IN BED, RESTING, CONFUSED, UNCLEAR SPEECH. PATIENT ON ROOM AIR; BREATHING EVEN AND UNLABORED; NO SOB NOTED. NO S/S OF PAIN SUCH FACIAL GRIMACING, GUARDING OR MOANING NOTED DURING THE DAY. HOB ELEVATED. NG-TUBE INTACT AND PATENT TOLERATING NEPRO AT 45ML/HR; PLACEMENT VERIFIED AND IN PLACE. BILATERAL WRIST RESTRAINTS INTACT AND PATENT. ANITHA MIDLINE PRESENT AND INTACT. ALL NEEDS ATTENDED THROUGHOUT THE DAY. SAFETY PRECAUTIONS IN PLACE; BED IN LOW POSITION AND LOCKED, RAILS UP X2, CALL LIGHT WITHIN REACH. WILL ENDORSE TO FASHION BUYING INTERNSHIP NURSE.
--- NOTE | 2020-07-05 19:30 | NUR ---
STRAIGHTENING ROLL OPERATOR OPENING NOTES RECEIVED PATIENT IN BED. A/OX1. CURRENTLY ON ROOM AIR. RESPIRATIONS ARE EVEN BUT INCREASED. WILL REVIEW MANAGER PHP VITALS FOR RESPIRATORY STATUS NO S/S PAIN NOTED. EXTERNAL TELE MONITOR READS SINUS RHYTHM HR 89. NG TUBE PRESENT IN LEFT NARE, RESIDUAL 10ML, FLUSHED WITH NO RESISTANCE, FEEDING RUNNING NEPRO@45ML/HR. BILATERAL SOFT WRIST RESTRAINTS PRESENT, ABLE TO PLACE FINGER INSIDE, GOOD CAP REFILL, NO REDNESS. BED IS LOW AND LOCKED, HOB ELEVATED IN SEMI FOWLERS, SIDE RAILS UP X2, CALL LIGHT WITHIN EACH. WILL CONTINUE TO MONITOR T/O SHIFT.
--- NOTE | 2020-07-05 20:58 | NUR ---
telephone exchange operator note received patient on room air. with ng tube in left nare running feeding for nepro@45ml/hr. pulp beater vitals show patient oxygen saturation to be in 70s. placed patient on non rebreather 15 liter now sat 93%. informed wolf erwin DNP. telephone order for stat chest xray. order read back noted and carried out.
[2020-07-05] MEDS: ATORVASTATIN 40 MG TABLET PO SCH (21:48)
[2020-07-05] MEDS: NEPRO 1,000 ML BOTTLE GT PRN (21:52)
[2020-07-05] MEDS: IV D5/ 0.9% NACL 1,000 ML IV PRN (21:53)
[2020-07-05] MEDS: INSULIN GLARGINE, 100 UNIT/ML CARTRIDGE SQ SCH (23:32)
[2020-07-06] VITALS: BP 109/48
[2020-07-06] MEDS: ACETAMINOPHEN 325 MG TABLET PO PRN (00:10)
--- NOTE | 2020-07-06 00:10 | NUR ---
telegraph dispatcher note administered prn Tylenol 650mg for temp 99.8. will reassess.
[2020-07-06 04:00] VITALS: BP 109/51
[2020-07-06] MEDS: HEPARIN SODIUM, PORCINE 5000 UNITS/1 ML VIAL SQ SCH (06:00)
--- NOTE | 2020-07-06 06:41 | NUR ---
ANDROID UI DEVELOPER CLOSING NOTES PATIENT RESTING IN BED. A/OX1. ON OXYGEN 15L/MIN VIA NON REBREATHER. NO S/S PAIN NOTED. EXTERNAL TELE MONITOR READS SINUS RHYTHM. NG TUBE MAINTAINED IN LEFT NARE RUNNING NEPRO@45ML/HR. BILATERAL SOFT WRIST RESTRAINTS MAINTAINED GOOD CAP REFILL, NO REDNESS. BED REMAINS LOW AND LOCKED, HOB ELEVATED IN SEMI FOWLERS, SIDE RAILS UP X2, CALL LIGHT WITHIN EACH. WILL ENDORSE TO NEXT SHIFT
[2020-07-06] MEDS: BLOOD SUGAR DIAGNOSTIC 1 EACH STRIP IN SCH ×2 (07:05→12:07)
--- NOTE | 2020-07-06 07:30 | NUR ---
CADMIUM PLATER NOTES PT IN BED, ASLEEP, EASY TO AROUSE, WITH CONFUSION, NO SIGN OF PAIN OR DISTRESS, NGT FEEDING INFUSING WELL, KEPT HOB ELEVATED, KEPT WARM AND COMFORTABLE IN BED.
[2020-07-06] MEDS: INSULIN REGULAR, HUMAN 100 UNIT/ML 3 ML VIAL SQ PRN ×2 (07:31→12:07)
[2020-07-06 08:12] VITALS: BP 120/84
[2020-07-06 09:00] VITALS: BP 120/84
[2020-07-06] MEDS: PROSOURCE / PROSTAT (PYXIS) 30 ML UDC GT SCH (09:00)
[2020-07-06] MEDS: AMLODIPINE BESYLATE 5 MG TABLET PO SCH (09:00)
[2020-07-06] MEDS: LISINOPRIL (20MG) 20 MG TABLET PO SCH (09:00)
[2020-07-06] MEDS: CARVEDILOL 12.5 MG TABLET PO SCH (09:00)
[2020-07-06] MEDS: GABAPENTIN 100 MG CAPSULE PO SCH ×2 (09:12→13:00)
[2020-07-06] MEDS: ASPIRIN 81 MG TAB.CHEW PO SCH (09:12)
[2020-07-06] MEDS: DOCUSATE SODIUM 100 MG CAPSULE PO SCH (09:12)
[2020-07-06] MEDS: FAMOTIDINE (20 MG) 20 MG TABLET PO SCH (09:13)
--- NOTE | 2020-07-06 09:45 | NUR ---
LCAC RADAR OPERATOR/NAVIGATOR NOTES PT WITH EPISODE OF VOMITING, KEPT HOB ELEVATED, FEEDING STOPPED FOR NOW, ZOFRAN GIVEN ORDERED, VOMITING STOPPED AFTER, WILL CONTINUE TO MONITOR.
[2020-07-06 10:04] LABS: ABG BASE EXCESS -2.5 mmol/L; ABG OXYGEN SATURATION 77.7 % (92.0-98.5); ABG PCO2 33.9 mmHg (35.0-45.0); ABG PO2 43.8 mmHg (75.0-100.0); COHb 0.9 % (0.5-1.5); MetHb 0.4 % (0.0-1.5); O2Hb 76.7 % (94.0-97.0); SITE, ABG Right Radial; VENT MODE, BG NRB
[2020-07-06] MEDS: MUPIROCIN OINT 2% 22 GM TUBE NS SCH (10:21)
--- NOTE | 2020-07-06 10:45 | NUR ---
ANALYSIS CONSULTANT NOTES PT SEEN BY DR. JOCYE, ORDERED ABG, RESULTS RELAYED TO , ORDERED TO START PT ON HIGH FLOW O2 VIA N/C, RT CALLED, NOTED AND CARRIED OUT.
[2020-07-06] MEDS ORDERED: DEXAMETHASONE SOD PHOSPHATE 10 MG/ML VIAL IV SCH ×2 (11:00)
[2020-07-06 11:40] LABS: BASOPHILS % (AUTO) 0.3 % (0.0-2.0); EOSINOPHILS % (AUTO) 0.5 % (0.0-6.0); HEMATOCRIT 25 % (39-51); HEMOGLOBIN 7.9 g/dL (13.5-17.5); LYMPHOCYTES # (AUTO) 0.6 /CMM (0.8-4.8); LYMPHOCYTES % (AUTO) 4.5 % (20.0-44.0); MEAN CORPUSCULAR HGB CONC 32 g/dl (31.0-36.0); MEAN CORPUSCULAR VOLUME 83 fL (80-96); MONOCYTES # (AUTO) 0.1 /CMM (0.1-1.30); NEUTROPHILS # (AUTO) 11.9 /CMM (1.8-8.9); NEUTROPHILS % (AUTO) 93.7 % (43.0-81.0); PLATELET COUNT (AUTO) 320 /CMM (150-450); RED BLOOD CELL COUNT(AUTO) 3.03 MIL/uL (4.5-6.0); WHITE BLOOD COUNT (AUTO) 12.7 K/uL (4.3-11.0)
[2020-07-06 11:56] LABS: CALCIUM, SERUM 9.2 mg/dL (8.5-10.1); POTASSIUM 3.5 mmol/L (3.5-5.1)
[2020-07-06 12:27] LABS: ABG BASE EXCESS -6.4 mmol/L; ABG PCO2 62.9 mmHg (35.0-45.0); ABG PH 7.165 (7.350-7.450); ABG PO2 46.3 mmHg (75.0-100.0); AaDO2 603.8 mmHg; COHb 0.5 % (0.5-1.5); MetHb 0.4 % (0.0-1.5); O2Hb 66.4 % (94.0-97.0); SITE, ABG Right Radial; VENT MODE, BG HFNC 60L 100%
--- NOTE | 2020-07-06 12:27 | NUR ---
RUBY ENGINEER NOTES REPEAT ABG DONE, RESULTS RELAYED TO DR. JOYCE, ORDER GIVEN TO TRANSFER PT TO ICU FOR INTUBATION.
--- NOTE | 2020-07-06 12:35 | NUR ---
HEAT TREATER HEAD NOTES UNABLE TO APPRECIATE A PULSE, CODE BLUE INITIATED
--- NOTE | 2020-07-06 12:52 | NUR ---
MANAGER MARKET NOTES PT INTUBATED AND TRANSFERED TO ICU RM 257 FOR CONTINUITY OF CARE.
[2020-07-06 13:03] LABS: CREATININE 11.7 mg/dL (0.6-1.3)
[2020-07-06] MEDS ORDERED: NOREPINEPHRINE 32 MG in IV NS 0.9% 218 ML IV PRN ×4 (13:30)
--- NOTE | 2020-07-06 13:30 | NUR ---
LOG CHAIN WORKER PT TRANSFERRED TO ICU 257 FROM [facility], S/P MARY ANDERSON, NOW INTUBATED. 100% PACED RHYTHM ON MONITOR. NO PALPABLE PULSES, MARY ANDERSON CALLED. DR JOYCE IN ATTENDANCE.
--- NOTE | 2020-07-06 13:30 | NUR ---
MODEL ARTISTS' NOTES PT'S DAUGHTER JEVON INFORMED OF PT'S CHANGE OF CONDITION.
[2020-07-06] MEDS ORDERED: SODIUM BICARBONATE SYR 50 MEQ/50 ML DISP.SYRIN ONE (13:39)
[2020-07-06] MEDS ORDERED: NOREPINEPHRINE 8MG/250ML D5W RTU IV ONE (13:39)
[2020-07-06] MEDS ORDERED: CALCIUM CHLORIDE 1,000 MG/10 ML DISP.SYRIN ONE (13:39)
[2020-07-06] MEDS ORDERED: EPINEPHRINE (1:10,000) SYRINGE 1 MG/10 ML DISP.SYRIN ONE (13:39)
--- NOTE | 2020-07-06 14:34 | NUR ---
DIRECTOR OF INSTITUTIONAL SALES CODE BLUE UNSUCCESSFUL, TERMINATED BY DR. JOYCE. PT APNEIC AND ASYSTOLIC. [facility] NOTIFIED, DECLINED CASE. SPOKE WITH PT'S DAUGHTER, SHIRLEY BY PHONE REGARDING PTS . CONTACT INFORMATION FOR TIE CUTTER GIVEN. DOES NOT WISH TO COME IN TO SEE PT. POST MORTEM CARE COMPLETED. READY FOR TRANSPORT [place] [facility] NO BELONGINGS WITH PT.
[2020-07-06] MEDS ORDERED: EPINEPHRINE (1:10,000) SYRINGE 1 MG/10 ML DISP.SYRIN IVP ONE (15:54)
[2020-07-06] MEDS ORDERED: SODIUM BICARBONATE SYR 50 MEQ/50 ML DISP.SYRIN IV ONE (15:54)
[2020-07-06] MEDS ORDERED: ATROPINE SULFATE 1 MG/10 ML DISP.SYRIN IV ONE (15:54)
== END 2020-07-06 13:42 | disposition expired | DRG 177 ==
LOC: ER 08:59 → TRANSITION 17:14 → TELE2 07-01 10:52 → ICU 07-06 13:25
PROVIDERS: ADMIT Family Medicine; ATTEND Internal Medicine
PROC: 5A1D70Z Performance of Urinary Filtration, Intermittent, Less than 6 Hours Per Day (ICD-10-PCS; principal; 2020-07-01)
PROC: 30233N1 Transfusion of Nonautologous Red Blood Cells into Peripheral Vein, Percutaneous Approach (ICD-10-PCS; 2020-07-04)
PROC: 0BH17EZ Insertion of Endotracheal Airway into Trachea, Via Natural or Artificial Opening (ICD-10-PCS; 2020-07-06)
PROC: 5A2204Z Restoration of Cardiac Rhythm, Single (ICD-10-PCS; 2020-07-06)
DX: U07.1 COVID-19 (principal); G93.41 Metabolic encephalopathy; N18.6 End stage renal disease; J96.01 Acute respiratory failure with hypoxia; I12.0 Hypertensive chronic kidney disease with stage 5 chronic kidney disease or end stage renal disease; E44.1 Mild protein-calorie malnutrition; K92.2 Gastrointestinal hemorrhage, unspecified; E87.70 Fluid overload, unspecified; E87.5 Hyperkalemia; Z20.828 Contact with and (suspected) exposure to other viral communicable diseases; E11.22 Type 2 diabetes mellitus with diabetic chronic kidney disease; E11.65 Type 2 diabetes mellitus with hyperglycemia; Z99.2 Dependence on renal dialysis; Z86.73 Personal history of transient ischemic attack (TIA), and cerebral infarction without residual deficits; Z85.46 Personal history of malignant neoplasm of prostate; Z79.82 Long term (current) use of aspirin; Z79.01 Long term (current) use of anticoagulants; Z79.4 Long term (current) use of insulin; Z79.899 Other long term (current) drug therapy; D63.8 Anemia in other chronic diseases classified elsewhere; E83.52 Hypercalcemia; N25.0 Renal osteodystrophy; Z87.891 Personal history of nicotine dependence; I67.2 Cerebral atherosclerosis; R13.10 Dysphagia, unspecified
CPT/HCPCS: 36415; 36600; 70450-TC; 71045-TC; 80048-TC; 80061-TC; 80076-TC; 82140-TC; 82550-TC; 82728-TC; 82962-TC; 83605-TC; 83615-TC; 83735-TC; 83880; 84100-TC; 84443-TC; 84484-TC; 85025-TC; 85378-TC; 85730-TC; 86140-TC; 86850-TC; 87040-TC; 87081-TC; 87086-TC; 90935-TC; 92521; 92526; A4216; A4217; C9803; G0378; G0480; J0171; J0461; J0692; J1100; J1644; J1815; J2405; J3370; J3490; J7042; J7050; J7060; J7070; P9016-BL; P9047; U0003